=== PATIENT | male | born 1975 | race Caucasian/White ===

== ENCOUNTER 2019-03-07 09:05 | Day surgery (SDC) | payer MEDICARE, MEDICAID ==
[2019-03-07] MEDS ORDERED: LIDOcaine 2% 5ml jelly ONE ×2 (09:56→11:08)
== END 2019-03-07 11:36 | disposition home or self-care (01) ==
LOC: WOUND CARE 09:05
PROVIDERS: ATTEND Surgery
DX: E10.621 Type 1 diabetes mellitus with foot ulcer (principal); L97.512 Non-pressure chronic ulcer of other part of right foot with fat layer exposed; E10.40 Type 1 diabetes mellitus with diabetic neuropathy, unspecified; E10.65 Type 1 diabetes mellitus with hyperglycemia; E10.22 Type 1 diabetes mellitus with diabetic chronic kidney disease; I12.9 Hypertensive chronic kidney disease with stage 1 through stage 4 chronic kidney disease, or unspecified chronic kidney disease; N18.9 Chronic kidney disease, unspecified; E10.69 Type 1 diabetes mellitus with other specified complication; M86.9 Osteomyelitis, unspecified; J44.9 Chronic obstructive pulmonary disease, unspecified; Z87.891 Personal history of nicotine dependence; Z86.73 Personal history of transient ischemic attack (TIA), and cerebral infarction without residual deficits
CPT/HCPCS: 11042; 36416; 87070; 87075; 87102; A6209; L3260; A4663; A6021; A6154; A6446

== ENCOUNTER 2019-03-14 09:03 | Day surgery (SDC) | payer MEDICARE, MEDICAID ==
[2019-03-14] MEDS ORDERED: LIDOcaine 2% 5ml jelly ONE (10:53)
== END 2019-03-14 12:18 | disposition home or self-care (01) ==
LOC: WOUND CARE 09:03
PROVIDERS: ATTEND Surgery
DX: E10.621 Type 1 diabetes mellitus with foot ulcer (principal); L97.512 Non-pressure chronic ulcer of other part of right foot with fat layer exposed; E10.40 Type 1 diabetes mellitus with diabetic neuropathy, unspecified; E10.65 Type 1 diabetes mellitus with hyperglycemia; E10.22 Type 1 diabetes mellitus with diabetic chronic kidney disease; I12.9 Hypertensive chronic kidney disease with stage 1 through stage 4 chronic kidney disease, or unspecified chronic kidney disease; N18.9 Chronic kidney disease, unspecified; E10.69 Type 1 diabetes mellitus with other specified complication; M86.9 Osteomyelitis, unspecified; J44.9 Chronic obstructive pulmonary disease, unspecified; Z87.891 Personal history of nicotine dependence; Z86.73 Personal history of transient ischemic attack (TIA), and cerebral infarction without residual deficits
CPT/HCPCS: 11042; 36416; A6209; A4663; A6021; A6154; A6446

== ENCOUNTER 2019-03-20 09:15 | Outpatient (CLI) | payer MEDICARE, MEDICAID | END 2019-03-20 23:59 | disposition home or self-care (01) | LOC: RAD 09:15 | PROVIDERS: ATTEND Surgery | DX: M86.8X7 Other osteomyelitis, ankle and foot (principal); R60.9 Edema, unspecified; Z89.431 Acquired absence of right foot | CPT/HCPCS: 73718 ==

== ENCOUNTER 2019-03-23 08:50 | Day surgery (SDC) | payer MEDICARE, MEDICAID | END 2019-03-23 10:22 | disposition home or self-care (01) | LOC: WOUND CARE 08:50 | PROVIDERS: ATTEND Surgery | DX: E10.621 Type 1 diabetes mellitus with foot ulcer (principal); L97.512 Non-pressure chronic ulcer of other part of right foot with fat layer exposed; E10.40 Type 1 diabetes mellitus with diabetic neuropathy, unspecified; E10.65 Type 1 diabetes mellitus with hyperglycemia; E10.22 Type 1 diabetes mellitus with diabetic chronic kidney disease; I12.9 Hypertensive chronic kidney disease with stage 1 through stage 4 chronic kidney disease, or unspecified chronic kidney disease; N18.9 Chronic kidney disease, unspecified; E10.69 Type 1 diabetes mellitus with other specified complication; M86.9 Osteomyelitis, unspecified; J44.9 Chronic obstructive pulmonary disease, unspecified; Z87.891 Personal history of nicotine dependence; Z86.73 Personal history of transient ischemic attack (TIA), and cerebral infarction without residual deficits | CPT/HCPCS: 93926; A6209; G0463; A4663; A6021; A6154; A6446 ==

== ENCOUNTER 2019-08-28 13:23 | Emergency (ER) | payer MEDICARE, MEDICAID ==
[~2019-08-28] VITALS: Ht 198.1 cm; Wt 108.2 kg
[2019-08-28 17:28] LABS: BASOPHILS # (AUTO) 0.1 X10'3 (0-0.2); BASOPHILS % (AUTO) 0.4 % (0-1); EOSINOPHILS # (AUTO) 0.2 X10'3 (0-0.9); EOSINOPHILS % (AUTO) 1.4 % (0-6); HEMATOCRIT 38.8 % (42.0-52.0); HEMOGLOBIN 12.3 g/dl (14.0-17.9); LYMPHOCYTES # (AUTO) 2.5 X10'3 (1.1-4.8); LYMPHOCYTES % (AUTO) 17.6 % (21-51); MEAN CORPUSCULAR HEMOGLOBIN 26.6 PG (27.0-31.0); MEAN CORPUSCULAR HGB CONC 31.7 g/dL (33.0-36.5); MEAN PLATELET VOLUME 9.5 FL (7.4-10.4); MONOCYTES # (AUTO) 1.5 X10'3 (0-0.9); MONOCYTES % (AUTO) 10.8 % (2-12); NEUTROPHILS # (AUTO) 9.9 X10'3 (1.8-7.7); NEUTROPHILS % (AUTO) 69.8 % (42-75); PLATELET COUNT 337 X10'3 (140-440); RED BLOOD COUNT 4.62 X10'6 (4.70-6.10); WHITE BLOOD COUNT 14.2 X10'3 (4.5-11.0)
[2019-08-28 17:42] VITALS: BP 129/82
--- NOTE | 2019-08-28 17:42 | NUR ---
re wrapped foot for pt
[2019-08-28 17:53] LABS: ALANINE AMINOTRANSFERASE 18 U/L (12-78); ALBUMIN 3.2 G/DL (3.4-5.0); ALBUMIN/GLOBULIN RATIO 0.8 (1.1-1.5); ALKALINE PHOSPHATASE 122 IU/L (46-116); ANION GAP 10 (8-16); ASPARTATE AMINO TRANSFERASE 12 U/L (10-37); BILIRUBIN,TOTAL 0.4 MG/DL (0.1-1.0); BLOOD UREA NITROGEN 16 MG/DL (7-18); BUN/CREATININE RATIO 10.1 (5.4-32.0); CALCIUM 8.6 MG/DL (8.5-10.1); CHLORIDE 107 MMOL/L (99-107); CREATININE 1.59 MG/DL (0.60-1.10); GLUCOSE 66 MG/DL (70-104); POTASSIUM 3.4 MMOL/L (3.5-5.1); SODIUM 144 MMOL/L (135-145); TOTAL CARBON DIOXIDE 26.9 MMOL/L (24-32); TOTAL PROTEIN 7.1 G/DL (6.4-8.2); eGFR 48 ML/MIN
--- NOTE | 2019-08-28 18:12 | NUR ---
to ct scan via wheelchair with tech
[2019-08-28] MEDS ORDERED: CefTRIAXone 1000mg IM Kit (w/lidocaine diluent) IM ONE (19:35)
[2019-08-28] MEDS ORDERED: cephalexin 250mg capsule PO ONE (19:35)
== END 2019-08-28 20:05 | disposition left against medical advice (07) ==
LOC: ER 13:24
DX: E11.628 Type 2 diabetes mellitus with other skin complications (principal); L03.115 Cellulitis of right lower limb; Z98.890 Other specified postprocedural states
CPT/HCPCS: 36415; 73700; 80053; 83605; 84145; 85025; 96372; 99284; J0696